=== PATIENT | female | born 1955 | race Caucasian/White ===

== ENCOUNTER 2020-10-14 09:47 | Observation (INO) | payer MEDICARE, SELFPAY ==
[2020-10-14] VITALS (9 sets, daily range): BP systolic 106–165; BP diastolic 33–77; PULSE 72–103; RESP 17–26; TEMP 36.5–37.7; O2SAT 96–100; BMI 21.9
--- NOTE | 2020-10-14 09:52 | CT_ITS ---
WS: [id number] CT HEAD NONCONTRAST HISTORY: fall and hit head TECHNIQUE: Contiguous axial imaging performed through the brain in 2.5 mm imaging. Bone and soft tiss ue windows. Sagittal and coronal reformats reviewed. All CT scans at [facility] use at ast one of these dose optimization techniques: automated exposure control; mA and/or kV adjustment pe r patient size (includes targeted exams where dose is matched to clinical indication); or iterative r econstruction. DLP: 890.23 mGy.cm COMPARISON: None available. No acute intracranial hemorrhage, midline shift or mass effect. Mild atrophy and mild chronic microvascular ischemic disease. There is motion artifact obscuring por tions of the anterior brain. Ventricles: Normal size with no hydrocephalus. Paranasal sinuses: As visualized are clear. Mastoid air cells: Well pneumatized. Extensive soft tissue in the external auditory canals from cerum en. Increased soft tissue adjacent to the RIGHT inner ear ossicles. Calvarium and scalp: No calvarial fracture. There is extensive soft tissue edema and air centered ove r the superior nasal region and the frontal bone. The nasal bones are intact. CT/CT head wo con* [id number] IMPRESSION: 1. No acute intracranial hemorrhage or edema. 2. Extensive soft tissue injury with hematoma and air centered over the superi or nasal region and frontal bone. No skull fracture or nasal bone fracture appr eciated.
--- NOTE | 2020-10-14 10:01 | ECG_ITS ---
[facility] Test Date: 2020-10-14 Pat Name: JESSIE SCHULZ Department: Room: Gender: Female Frame Polisher: : 1955 Requested By: Rakan Scanlon Order Number: [id number] Dusty MD: Rhea Holman M.D. Measurements Intervals [place] Rate: 74 P: 70 WA: 188 QRS: 26 QRSD: 97 T: 46 QT: 381 QTc: 425 Interpretive Statements SINUS RHYTHM No previous ECG available for comparison Electronically Signed On 10-14-2020 18:25:49 FIRE FIGHTER by Rhea Holman M.D. [id number]
--- NOTE | 2020-10-14 10:15 | ED_ITS ---
Documented by User: DEVON Garnica 10/14/20 16:01 HPI - Fall General: Chief Complaint: Fall Stated Complaint: FALL, POSS SEIZURE, LAC TO HEAD Time Seen by Provider: 10/14/20 09:53 History of Present Illness: HPI Narrative: Patient is a 65-year-old female who comes to the ED via EMS after having a fall in bathroom due possible seizure, but fall unwitnessed. Patient does have a past medical history of MS and seizures. Patient is not currently on any anti-seizure meds. She is only had about 3 seizures in entire life. Patient was found down in the bathroom with a laceration to her forehead. While here in the ED patient was able to respond to questions and seemed to be in postictal state. Patient is not sure what caused her to go down in the shower and has no memory of it. No idea on how long patient was down and unconscious. told EMS that during the night he thought his was shaking a little bit while she was sleeping. He thinks she might have a been having some seizure activity during the night. When EMS arrived patient was unconscious and has slowly been coming to since found. Patient up-to-date on tetanus and received it within the last 10 years. Daughter is present at bedside as well. She stated patient's last seizure was during the summer. Associated symptoms-after fall: Reports confusion (Postictal symptoms.); Denies abdominal pain, chest pain, headache(s), hematuria or neck pain Review of Systems Const: Denies: fever(s), chills or fatigue Eyes: Reports: other (Periorbital swelling on left eye.); Denies: change in vision or eye discomfort ENMT: Denies: throat pain, odynophagia, nasal discharge or nasal congestion Card: Denies: chest pain, palpitations, edema, swelling of feet/ankles, dyspnea on exertion or orthopnea Resp: Denies: dyspnea, productive cough or non-productive cough GI: Denies: abdominal pain, nausea, vomiting, diarrhea, constipation or hematochezia : Denies: flank pain, dysuria or hematuria Musc: Denies: neck pain, back pain or extremity swelling Skin/Breast: Reports: new lesions (Laceration to forehead.); Denies: rash Neuro: Reports: confusion (Postictal symptoms.) and seizure-like activity; Denies: headache(s), numbness in extremities or weakness in extremities Physical Exam Const: COMMON NORMALS: patient oriented x3, healthy appearing and alert EXAM LIMITATIONS: altered mental status (Post ictal but is improving and continuing to slowly returned to baseline. ) GENERAL APPEARANCE: cooperative and comfortable HENMT: COMMON NORMALS: normocephalic HEAD & SCALP: normocephalic and laceration right frontal Details of head laceration: linear (Linear laceration on lower central part of forehead. Just above eyebrow line.) and superficial; not actively bleeding, not pulsatile bleeding, foreign body not present and not contaminated Head laceration size: 2 cm; no Thrasher's sign and no raccoon eyes FACE & SINUS: abrasion on the left periorbital NOSE: Other nasal findings present (Patient had abrasion on bridge of nose.) MOUTH: Normal oral and palatal mucosa present THROAT: posterior oropharynx normal and uvula midline Eye: PERIORBITAL: periorbital findings abnormal positive left periorbital swelling and periorbital ecchymosis Neck/C-Spine: COMMON NORMALS: supple GENERAL: Yes normal visual inspection Resp: COMMON NORMALS: normal respiratory effort, No retractions, No use of accessory muscles and clear to auscultation bilaterally AUSCULTATION: clear to auscultation bilaterally Cardio: COMMON NORMALS: regular rate, regular rhythm, S1 normal heart sound present, S2 normal heart sound present, No gallops present (Cardio), No clicks present (Cardio), No murmurs present (Cardio) and Peripheral pulses 2+ throughout RATE: regular rate RHYTHM: regular rhythm HEART SOUNDS: S1 normal heart sound present and S2 normal heart sound present PERIPHERAL PULSES: Peripheral pulses 2+ throughout GI: COMMON NORMALS: Normal to inspection, nondistended, normoactive bowel sounds present, Soft to palpation, non-tender and no masses PALPATION: Yes Soft to palpation : COMMON NORMALS: Yes no CVA tenderness BLADDER/KIDNEY EXAM: Yes no CVA tenderness Back/Pelvis: COMMON NORMALS: no CVA tenderness Extremity: COMMON NORMALS: normal to inspection Neuro: COMMON NORMALS: patient oriented x3 and moves all extremities SENSORIUM/ORIENTATION: Yes alert OTHER: Patient was in postictal state and seems sleepy but was responsive to my questions and answered them appropriately. Mental status was improving as time progressed here in the ED. Skin: GENERAL SKIN EXAM: dry skin Procedures Laceration Laceration 1: Site: face (lower middle forehead in between eyes) Size (cm): 2 Description: linear Depth: simple, single layer Local Anesthetic: lidocaine 1% and with epi Amount of anesthesia used (mL): 10 Pre-repair: irrigated extensively (With normal saline.) Skin layer closed with: nylon Size (cm): 5-0 Number of sutures: 3 Technique: simple, interrupted Course Reevaluation(s): Reevaluation #1: While I was suturing patient's laceration she had a generalized seizure. She was having uncontrolled full body convulsions and was unresponsive. Seizure lasted for approximately 1 minute and she did have bladder incontinence. I ordered some Ativan patient has been administered a dose. Currently she is post ictal Time: 11:10 Reevaluation #2: I went in and reevaluated patient's mental status. She is alert and will respond to a question but is not always an accurate response. She knew her birthday month but not the day. She also did not know where she was and thought she was at home. I went and talked with Dr. Eaton about patient's current mental status and he said he would contact the hospitalist about possible admission. Time: 14:05 Consultations: Consultation #1: I contacted Dr. Bertrand and talked with her about patient case and recent seizure activity and CT head findings. She agreed with the doses of Ativan and Keppra that were given here in the ED. She recommended watching patient for another hour or so to see if there mental status improves and she comes out of postictal state. If not she recommends having hospitalist admit her to watch her. She also recommends that patient gets put on 500 mg of Keppra ER take 2 tabs daily at discharge. Vital Signs: Vital signs: Vital Signs Temperature 98.1 F 10/15/20 18:07 Pulse Rate 53 L 10/15/20 18:07 Respiratory Rate 19 H 10/15/20 18:07 Blood Pressure 107/64 10/15/20 18:07 Pulse Oximetry 97 10/15/20 18:07 MDM - Fall MDM Narrative: Medical decision making narrative: Patient is a 65-year-old female who comes to the ED after having a possible seizure and being found down on the ground unconscious with laceration to forehead. Patient has a history of MS and seizures but currently does not take any antiseizure medication. Last known seizure prior to today was a couple months ago during the summer. Patient's mental status when she first arrived in the ED was improving and she was responding to questions appropriately but was tired and in postictal state. Patient then had a generalized seizure while here in the ED and she was given 1000 mg of Keppra and [address] of head showed no acute findings. I discussed the case with Dr. Bertrand and she recommended watching her for another hour to see if mental status improves. If it does not improve she recommends patient being admitted in the hospital. After reassessing patient's mental status she still appeared pretty confused and I talked with Dr. Eaton and he is going to contact hospitalist for admission. Lab Data: Attestation: I reviewed the patient's lab results. Labs: Lab Results 10/14/20 10/14/20 10/14/20 Range/Units 11:43 12:04 12:04 WBC Cancelled Corrected WBC Cancelled RBC Cancelled Hgb Cancelled Hct Cancelled MCV Cancelled MCH Cancelled MCHC Cancelled RDW Cancelled Plt Count Cancelled MPV Cancelled Gran % Cancelled Neut % (Auto) Cancelled Lymph % (Auto) Cancelled Gillespie % (Auto) Cancelled Eos % (Auto) Cancelled Baso % (Auto) Cancelled Neut # (Auto) Cancelled Lymph # (Auto) Cancelled Gillespie # (Auto) Cancelled Eos # (Auto) Cancelled Baso # (Auto) Cancelled Absolute Gran (aut o) Cancelled Nucleated RBC % (a uto) Cancelled Nucleated RBCs # Cancelled PT 12.70 (12.1-14.9) SECO NDS INR 0.93 (0.8-1.2) APTT 20.3 L (23.9-36.7) SECO NDS Sodium 142 (136-145) mmol/L Potassium 3.8 (3.5-5.1) mmol/L Chloride 106 (98-107) mmol/L Carbon Dioxide 26 (22-29) mmol/L Anion Gap 13.8 (5-19) BUN 10 (8-23) mg/dL Creatinine 0.5 (0.5-0.9) mg/dL GFR Calculation 124.6 (90-130) mL/min Glucose 109 (65-115) mg/dL Random Glucose Cancelled Calculated Osmolal ity 294 (285-295) mOsm/k g Lactic Acid (0.5-2.2) mmol/L Calcium 8.9 (8.5-10.5) mg/dL Total Bilirubin 0.4 (0.15-1.2) mg/dL AST 19 (0-32) U/L ALT 13 (0-33) U/L Alkaline Phosphata se 60 (35-105) IU/L Creatine Kinase 150 (26-192) U/L Total Protein 6.9 (6.6-8.7) g/dL Albumin 4.2 (3.5-5.2) g/dL Globulin 2.7 (1.3-4.6) g/dL 10/14/20 10/14/20 10/14/20 Range/Units 12:04 12:04 13:28 WBC 10.4 H Corrected WBC RBC 3.98 L Hgb 11.7 Hct 36.7 L MCV 92.2 MCH 29.4 MCHC 31.9 RDW 13.2 Plt Count 250 MPV 11.0 H Gran % Neut % (Auto) 85.1 Lymph % (Auto) 9.6 Gillespie % (Auto) 4.5 Eos % (Auto) 0.1 Baso % (Auto) 0.3 Neut # (Auto) 8.87 H Lymph # (Auto) 1.0 Gillespie # (Auto) 0.5 Eos # (Auto) 0.0 Baso # (Auto) 0.0 Absolute Gran (aut o) Nucleated RBC % (a uto) 0 Nucleated RBCs # 0.0 PT (12.1-14.9) SECO NDS INR (0.8-1.2) APTT (23.9-36.7) SECO NDS Sodium Cancelled (136-145) mmol/L Potassium Cancelled (3.5-5.1) mmol/L Chloride Cancelled (98-107) mmol/L Carbon Dioxide Cancelled (22-29) mmol/L Anion Gap Cancelled (5-19) BUN Cancelled (8-23) mg/dL Creatinine Cancelled (0.5-0.9) mg/dL GFR Calculation Cancelled (90-130) mL/min Glucose Cancelled (65-115) mg/dL Random Glucose Calculated Osmolal ity Cancelled (285-295) mOsm/k g Lactic Acid 1.1 (0.5-2.2) mmol/L Calcium Cancelled (8.5-10.5) mg/dL Total Bilirubin Cancelled (0.15-1.2) mg/dL AST Cancelled (0-32) U/L ALT Cancelled (0-33) U/L Alkaline Phosphata se Cancelled (35-105) IU/L Creatine Kinase Cancelled (26-192) U/L Total Protein Cancelled (6.6-8.7) g/dL Albumin Cancelled (3.5-5.2) g/dL Globulin Cancelled (1.3-4.6) g/dL 10/14/20 Range/Units 13:28 WBC Corrected WBC RBC Hgb Hct MCV MCH MCHC RDW Plt Count MPV Gran % Neut % (Auto) Lymph % (Auto) Gillespie % (Auto) Eos % (Auto) Baso % (Auto) Neut # (Auto) Lymph # (Auto) Gillespie # (Auto) Eos # (Auto) Baso # (Auto) Absolute Gran (aut o) Nucleated RBC % (a uto) Nucleated RBCs # PT (12.1-14.9) SECO NDS INR (0.8-1.2) APTT (23.9-36.7) SECO NDS Sodium Cancelled (136-145) mmol/L Potassium Cancelled (3.5-5.1) mmol/L Chloride Cancelled (98-107) mmol/L Carbon Dioxide Cancelled (22-29) mmol/L Anion Gap Cancelled (5-19) BUN Cancelled (8-23) mg/dL Creatinine Cancelled (0.5-0.9) mg/dL GFR Calculation Cancelled (90-130) mL/min Glucose Cancelled (65-115) mg/dL Random Glucose Calculated Osmolal ity Cancelled (285-295) mOsm/k g Lactic Acid (0.5-2.2) mmol/L Calcium Cancelled (8.5-10.5) mg/dL Total Bilirubin Cancelled (0.15-1.2) mg/dL AST Cancelled (0-32) U/L ALT Cancelled (0-33) U/L Alkaline Phosphata se Cancelled (35-105) IU/L Creatine Kinase Cancelled (26-192) U/L Total Protein Cancelled (6.6-8.7) g/dL Albumin Cancelled (3.5-5.2) g/dL Globulin Cancelled (1.3-4.6) g/dL Imaging Data^: CT Head: Attestation: I personally reviewed and interpreted this imaging study as follows: Radiologist's impression: [address] [place] [address] CT Scan Report Signed Patient: JESSIE CSHULZ Unit #: [id number] : 1955 Age/Sex: 65 / F ADM Date: 10/14/20 Loc: ER Room/Bed: Attending Dr: Ordering Provider/Ordering MD: Rakan Scanlon Date of Service: 10/14/20 Procedure(s): CT head wo con* [id number] Accession Number(s): [id number] Report Number: [id number] WS: [id number] CT HEAD NONCONTRAST HISTORY: fall and hit head TECHNIQUE: Contiguous axial imaging performed through the brain in 2.5 mm imaging. Bone and soft tissue windows. Sagittal and coronal reformats reviewed. All CT scans at [facility] use at least one of these dose optimization techniques: automated exposure control; mA and/or kV adjustment per patient size (includes targeted exams where dose is matched to clinical indication); or iterative reconstruction. DLP: 890.23 mGy.cm COMPARISON: None available. No acute intracranial hemorrhage, midline shift or mass effect. Mild atrophy and mild chronic microvascular ischemic disease. There is motion artifact obscuring portions of the anterior brain. Ventricles: Normal size with no hydrocephalus. Paranasal sinuses: As visualized are clear. Mastoid air cells: Well pneumatized. Extensive soft tissue in the external auditory canals from cerumen. Increased soft tissue adjacent to the RIGHT inner ear ossicles. Calvarium and scalp: No calvarial fracture. There is extensive soft tissue edema and air centered over the superior nasal region and the frontal bone. The nasal bones are intact. CT/CT head wo con* [id number] IMPRESSION: 1. No acute intracranial hemorrhage or edema. 2. Extensive soft tissue injury with hematoma and air centered over the superior nasal region and frontal bone. No skull fracture or nasal bone fracture appreciated. Dictated By: Danyelle Mcclendon DO Signed By: Danyelle Mcclendon DO Signed Date/Time: 10/14/20 1032 DD/ 1028 EKG Data^: EKG 1: Attestation: I personally reviewed and interpreted this EKG as follows: EKG interpretation date: 10/14/20 Interpretation: Normal sinus rhythm, 74 bpm, no ST segment elevation or depression seen. Discharge Plan Discharge Patient Disposition: Admitted As Inpatient Admit Provider: Bradley Clay Clinical Impression: Seizure, Multiple sclerosis Condition: Stable Discharge Diet: Usual diet Discharge Activity: Increase activity as tolerated Coding Level of Care Code ED Theater Education Teacher for Chg Fwd Exam Comprehensive Documented by User: Maryanne E[place] [facility] [place]15[place] 23:44 HPI - Fall General: Chief Complaint: Fall Stated Complaint: FALL, POSS SEIZURE, LAC TO HEAD Time Seen by Provider: 10/14/20 09:53 Course Vital Signs: Vital signs: Vital Signs Temperature 98.1 F 10/15/20 18:07 Pulse Rate 53 L 10/15/20 18:07 Respiratory Rate 19 H 10/15/20 18:07 Blood Pressure 107/64 10/15/20 18:07 Pulse Oximetry 97 10/15/20 18:07 MDM - Fall MDM Narrative: Medical decision making narrative: See the midlevel provider as note for history and physical. I evaluated this patient. This 65-year-old female patient with a prior history of seizures and who is not on any antiepileptics has had several episodes of seizures today, at least 3. The last 1 of which was during suturing here in the emergency department. The patient has been postictal because of the recurrent seizures she was given a loading dose of intravenous Keppra and on the advice of the neurologist she is admitted for further evaluation and management. Had extensive conversations with the patient's daughter explaining the clinical findings and the reason why she has been admitted and she voiced understanding and is in agreement with the plan. She was also going to inform her father was worried about the patient. Lab Data: Labs: Lab Results 10/14/20 10/14/20 10/14/20 Range/Units 11:43 12:04 12:04 WBC Cancelled Corrected WBC Cancelled RBC Cancelled Hgb Cancelled Hct Cancelled MCV Cancelled MCH Cancelled MCHC Cancelled RDW Cancelled Plt Count Cancelled MPV Cancelled Gran % Cancelled Neut % (Auto) Cancelled Lymph % (Auto) Cancelled Gillespie % (Auto) Cancelled Eos % (Auto) Cancelled Baso % (Auto) Cancelled Neut # (Auto) Cancelled Lymph # (Auto) Cancelled Gillespie # (Auto) Cancelled Eos # (Auto) Cancelled Baso # (Auto) Cancelled Absolute Gran (aut o) Cancelled Nucleated RBC % (a uto) Cancelled Nucleated RBCs # Cancelled PT 12.70 (12.1-14.9) SECO NDS INR 0.93 (0.8-1.2) APTT 20.3 L (23.9-36.7) SECO NDS Sodium 142 (136-145) mmol/L Potassium 3.8 (3.5-5.1) mmol/L Chloride 106 (98-107) mmol/L Carbon Dioxide 26 (22-29) mmol/L Anion Gap 13.8 (5-19) BUN 10 (8-23) mg/dL Creatinine 0.5 (0.5-0.9) mg/dL GFR Calculation 124.6 (90-130) mL/min Glucose 109 (65-115) mg/dL Random Glucose Cancelled Calculated Osmolal ity 294 (285-295) mOsm/k g Lactic Acid (0.5-2.2) mmol/L Calcium 8.9 (8.5-10.5) mg/dL Total Bilirubin 0.4 (0.15-1.2) mg/dL AST 19 (0-32) U/L ALT 13 (0-33) U/L Alkaline Phosphata se 60 (35-105) IU/L Creatine Kinase 150 (26-192) U/L Total Protein 6.9 (6.6-8.7) g/dL Albumin 4.2 (3.5-5.2) g/dL Globulin 2.7 (1.3-4.6) g/dL 10/14/20 10/14/20 10/14/20 Range/Units 12:04 12:04 13:28 WBC 10.4 H Corrected WBC RBC 3.98 L Hgb 11.7 Hct 36.7 L MCV 92.2 MCH 29.4 MCHC 31.9 RDW 13.2 Plt Count 250 MPV 11.0 H Gran % Neut % (Auto) 85.1 Lymph % (Auto) 9.6 Gillespie % (Auto) 4.5 Eos % (Auto) 0.1 Baso % (Auto) 0.3 Neut # (Auto) 8.87 H Lymph # (Auto) 1.0 Gillespie # (Auto) 0.5 Eos # (Auto) 0.0 Baso # (Auto) 0.0 Absolute Gran (aut o) Nucleated RBC % (a uto) 0 Nucleated RBCs # 0.0 PT (12.1-14.9) SECO NDS INR (0.8-1.2) APTT (23.9-36.7) SECO NDS Sodium Cancelled (136-145) mmol/L Potassium Cancelled (3.5-5.1) mmol/L Chloride Cancelled (98-107) mmol/L Carbon Dioxide Cancelled (22-29) mmol/L Anion Gap Cancelled (5-19) BUN Cancelled (8-23) mg/dL Creatinine Cancelled (0.5-0.9) mg/dL GFR Calculation Cancelled (90-130) mL/min Glucose Cancelled (65-115) mg/dL Random Glucose Calculated Osmolal ity Cancelled (285-295) mOsm/k g Lactic Acid 1.1 (0.5-2.2) mmol/L Calcium Cancelled (8.5-10.5) mg/dL Total Bilirubin Cancelled (0.15-1.2) mg/dL AST Cancelled (0-32) U/L ALT Cancelled (0-33) U/L Alkaline Phosphata se Cancelled (35-105) IU/L Creatine Kinase Cancelled (26-192) U/L Total Protein Cancelled (6.6-8.7) g/dL Albumin Cancelled (3.5-5.2) g/dL Globulin Cancelled (1.3-4.6) g/dL 10/14/20 Range/Units 13:28 WBC Corrected WBC RBC Hgb Hct MCV MCH MCHC RDW Plt Count MPV Gran % Neut % (Auto) Lymph % (Auto) Gillespie % (Auto) Eos % (Auto) Baso % (Auto) Neut # (Auto) Lymph # (Auto) Gillespie # (Auto) Eos # (Auto) Baso # (Auto) Absolute Gran (aut o) Nucleated RBC % (a uto) Nucleated RBCs # PT (12.1-14.9) SECO NDS INR (0.8-1.2) APTT (23.9-36.7) SECO NDS Sodium Cancelled (136-145) mmol/L Potassium Cancelled (3.5-5.1) mmol/L Chloride Cancelled (98-107) mmol/L Carbon Dioxide Cancelled (22-29) mmol/L Anion Gap Cancelled (5-19) BUN Cancelled (8-23) mg/dL Creatinine Cancelled (0.5-0.9) mg/dL GFR Calculation Cancelled (90-130) mL/min Glucose Cancelled (65-115) mg/dL Random Glucose Calculated Osmolal ity Cancelled (285-295) mOsm/k g Lactic Acid (0.5-2.2) mmol/L Calcium Cancelled (8.5-10.5) mg/dL Total Bilirubin Cancelled (0.15-1.2) mg/dL AST Cancelled (0-32) U/L ALT Cancelled (0-33) U/L Alkaline Phosphata se Cancelled (35-105) IU/L Creatine Kinase Cancelled (26-192) U/L Total Protein Cancelled (6.6-8.7) g/dL Albumin Cancelled (3.5-5.2) g/dL Globulin Cancelled (1.3-4.6) g/dL Discharge Plan Discharge Patient Disposition: Admitted As Inpatient Admit Provider: Bradley Clay Clinical Impression: Seizure, Multiple sclerosis Condition: Stable Discharge Diet: Usual diet Discharge Activity: Increase activity as tolerated Coding Level of Care Code ED Theater Education Teacher for Chg Fwd Exam Comprehensive
[2020-10-14] MEDS: LORazepam 2 mg/mL INJ 1 mL IVP (11:05)
[2020-10-14 12:32] LABS: Lactic Sepsis W/Reflex 1.1 mmol/L (0.5-2.2)
[2020-10-14 12:34] LABS: INR 0.93 (0.8-1.2)
[2020-10-14 12:58] LABS: Partial Thromboplastin Time 20.3 SECONDS (23.9-36.7)
[2020-10-14 13:38] LABS: Basophils % 0.3 %; Eosinophils % 0.1 %; Hematocrit 36.7 % (37.0-47.0); Hemoglobin 11.7 g/dL (11.5-15.3); Lymphocytes % 9.6 %; Mean Corpuscular HGB Conc 31.9 g/dL (30.0-36.0); Mean Corpuscular Hemoglobin 29.4 pg (28.0-34.0); Mean Corpuscular Volume 92.2 fL (81-99); Monocytes # 0.5 10^3/uL (0.2-0.9); Monocytes % 4.5 %; Neutrophils # 8.87 10^3/uL (1.8-7.7); Neutrophils % 85.1 %; Nucleated Red Blood Cells % 0 %; Platelet Count 250 10^3/cmm (130-400); Red Blood Count 3.98 10^6/uL (4.1-5.3); Red Cell Distribution Width 13.2 % (12.1-15.1); White Blood Count 10.4 10^3/uL (4.0-10.0)
[2020-10-14 14:37] LABS: Alanine Aminotransferase 13 U/L (0-33); Albumin Level 4.2 g/dL (3.5-5.2); Alkaline Phosphatase 60 IU/L (35-105); Anion Gap 13.8 (5-19); Aspartate Amino Transferase 19 U/L (0-32); Blood Urea Nitrogen 10 mg/dL (8-23); Calcium 8.9 mg/dL (8.5-10.5); Carbon Dioxide 26 mmol/L (22-29); Chloride 106 mmol/L (98-107); Creatine Phosphokinase 150 U/L (26-192); Globulin 2.7 g/dL (1.3-4.6); Glomerular Filtration Rate 124.6 mL/min (90-130); Glucose 109 mg/dL (65-115); Osmolality Calculated 294 mOsm/kg (285-295); Potassium 3.8 mmol/L (3.5-5.1); Sodium 142 mmol/L (136-145); Total Bilirubin 0.4 mg/dL (0.15-1.2); Total Protein 6.9 g/dL (6.6-8.7)
--- NOTE | 2020-10-14 15:13 | CTR_ITS ---
PROCEDURE INFORMATION: Exam: CT Maxillofacial Without Contrast Exam date and time: 10/14/2020 3:14 PM Age: 65 years old Clinical indication: Injury or trauma; Fall; Blunt trauma (contusions or hematomas); Cheek bone and nose; Left; Additional info: Fall, facial injuries TECHNIQUE: Imaging protocol: Computed tomography images of the face without contrast. Radiation optimization: All CT scans at this facility use at least one of these dose optimization techniques: automated exposure control; mA and/or kV adjustment per patient size (includes targeted exams where dose is matched to clinical indication); or iterative reconstruction. COMPARISON: No relevant prior studies available. RADIATION DOSE METRICS: Total DLP (mGy-cm): 754.45 FINDINGS: Orbital cavity: The orbits are intact. Bones/joints: The nasal bones appear intact. The zygomatic arches are intact. The mandible is intact. No fracture of the pterygoid plates. Paranasal sinuses: No air-fluid levels are seen in the paranasal sinuses. Auditory system: Retained cerumen in the bilateral external auditory canals. Soft tissues: Soft tissue swelling and air seen in the soft tissues of the nose and frontal scalp in the midline. No radiopaque foreign body demonstrated in the soft tissues. No soft tissue hematoma appreciated. CT/CT facial bones wo con* [id number] IMPRESSION: 1. No acute fracture demonstrated. 2. Soft tissue swelling and air seen in the nose and frontal scalp in the midline. This is consistent with soft tissue laceration. No foreign body. Radiation Dose CTDIVOL = (mGy): DLP = 754.45 (mGy-cm)
--- NOTE | 2020-10-14 15:54 | PM.HP ---
Providers/Chief Complaint Admitting Physician: Bradley Clay MD Chief Complaint: FALL, POSS SEIZURE, LAC TO HEAD History of Present Illness 65-year-old female with PMH of seizure disorder ,HTN, was brought in by the EMS after she was found down in her bathroom with a laceration to her forehead. Patient is not sure what caused her to go down in the shower and has no memory of it. No idea on how long patient was down and unconscious.While in the ER there was witnessed GTCS aborted with Keppra 1 gm and ativan. At the time of exam she was drowsy history taking has been difficult.Currently she is complaining of pain around her lt eye and lt forehead. Rohith has not taken any seizure medication crista stopped taking seizure medications in the last 3 months.She do not recall what seizure medications she is on. Complete ROS could not be obtained, as the patient is drowsy right now. Imaging studies in the ER: CT head without contrast: No acute intracranial hemorrhage or edema. Extensive soft tissue injury with hematoma and air centered over the superior nasal region and frontal bone. No skull fracture or nasal bone fracture appreciated. CT facial bones wo con: No acute fracture demonstrated. Soft tissue swelling and air seen in the nose and frontal scalp in the midline. EKG:SINUS RHYTHM. Review of Systems Const: Denies: fever(s) Card: Denies: palpitations Resp: Denies: dyspnea GI: Denies: abdominal pain : Denies: flank pain Musc: Denies: back pain, extremity pain or extremity swelling Medications/Allergies Home Medications Medication Instructions Recorded Confirmed Last Taken Type aspirin 81 mg PO DAILY 10/14/20 10/14/20 10/13/20 History ginseng 100 mg PO DAILY 10/14/20 10/14/20 10/13/20 History glatiramer [Copaxone] 20 mg SUBCUT DAILY 10/14/20 10/14/20 10/13/20 History metoprolol tartrate 25 mg PO DAILY 10/14/20 10/14/20 10/13/20 History tolterodine 4 mg PO DAILY 10/14/20 10/14/20 10/13/20 History Allergies Allergy/AdvReac Type Severity Reaction Status Date / Time No Known Allergies Allergy Verified 10/14/20 10:01 Vitals/I&O/Wt Last Vital Signs Temp 97.7 F 10/14/20 10:02 Pulse 89 10/14/20 14:48 Resp 18 10/14/20 14:48 BP 140/65 10/14/20 14:48 Pulse Ox 97 10/14/20 14:48 Weight last 48 hrs Weight 63.503 kg Physical Exam Narrative: EXAM NARRATIVE: Patient is currently Drowsy HENMT: HEAD & SCALP: normocephalic EXTERNAL EAR: Yes external ears normal Eye: OTHER: laceration right frontal: linear (Linear laceration on lower central part of forehead. Just above eyebrow line.) and superficial; not actively bleeding, not pulsatile bleeding, foreign body not present and not contaminated Head laceration size: 2 cm; no Thrasher's sign and no raccoon eyes FACE & SINUS: abrasion on the left periorbital NOSE: Other nasal findings present (Patient had abrasion on bridge of nose.) MOUTH: Normal oral and palatal mucosa present THROAT: posterior oropharynx normal and uvula midline Eye: PERIORBITAL: periorbital findings abnormal positive left periorbital swelling and periorbital ecchymosis Neck: supple Chest: COMMONS NORMALS: normal inspection of the chest and normal palpation of entire chest wall CHEST: Yes Symmetrical chest wall rise Resp: COMMON NORMALS: normal respiratory effort, No retractions and clear to auscultation bilaterally EFFORT & INSPECTION: Yes symmetric chest movement AUSCULTATION: clear to auscultation bilaterally Cardio: COMMON NORMALS: regular rate, regular rhythm, S1 normal heart sound present, S2 normal heart sound present, No gallops present (Cardio), No murmurs present (Cardio), No rub (Cardio) and Peripheral pulses 2+ throughout RATE: regular rate RHYTHM: regular rhythm HEART SOUNDS: S1 normal heart sound present and S2 normal heart sound present PERIPHERAL PULSES: Peripheral pulses 2+ throughout GI: COMMON NORMALS: Normal to inspection, nondistended, normoactive bowel sounds present, Soft to palpation, non-tender, No hepatosplenomegaly present and no masses AUSCULTATION: Yes normoactive bowel sounds PALPATION: Yes Soft to palpation and Yes No hepatosplenomegaly present RECTAL EXAM: deferred Extremity: COMMON NORMALS: no clubbing, cyanosis or edema and no pedal edema Data : 10/14/20 13:28 10/14/20 11:43 A&P Assessment and plan (1) Seizure: Patient has PMH of Seizure disorder, she has been on Anti Seizure Medications in the past.Stopped taking seizure medication Loaded with Keppra 1 gm in the ER. Neurology was consulted in the ER and Per neurology.They want to observe the patient overnight for any oter breakthrough seizure as well as any change in mentation. Continue Keppra 500 mg q12 h daily for now. Ativan PRN Neurology follow as outpatient. Status: Acute (2) Multiple sclerosis: She is on GA ( 20 mg sc daily at home ) Status: Acute (3) HTN (hypertension): B/P Well controlled. Monitor Vitals for now. Will resume M.Tart 25 mg po daily Status: Acute Additional A&P Information DVT PPX: Lovenox 40 mg sc daily Code status :Full code Attestations Medical Necessity Statement*: Patient needs to be in hospital for the management of Seizure. Coding Level of Care Code Acute Frame Sample And Pattern Supervisor for Oliva Wick Diagnoses Seizure R56.9 Multiple sclerosis G35 HTN (hypertension) I10
[2020-10-14] MEDS: enoxaparin 40 mg/0.4 mL Syringe SUBCUT (17:42)
--- NOTE | 2020-10-14 20:05 | XR_ITS ---
WS: [id number] Exam: XR shoulder RT 1V [id number] Date/Time of Exam: 10/14/2020 8:22 PM Reason For Exam: fall Single AP view of the right shoulder submitted for evaluation. No obvious fracture or dislocation noted. Soft tissues are unremarkable. Several old right rib fractu res are noted. XR/XR shoulder RT 1V [id number] IMPRESSION: 1. No obvious fracture or dislocation from the single AP image presented. A pos terior shoulder dislocation can't be completely excluded on this single AP imag e.
--- NOTE | 2020-10-14 20:05 | XR_ITS ---
WS: [id number] Exam: XR chest 1V portable [id number] Date/Time of Exam: 10/14/2020 8:22 PM Reason For Exam: fall No priors. The lungs are fully expanded and clear. Heart size is normal. The mediastinum is not widened. No pleu ral effusions. Fracture deformities involve the posterior right second, third and fourth ribs. There is also fracture deformity of the posterior left third rib. XR/XR chest 1V portable [id number] IMPRESSION: 1. Fracture deformities of the right second through the fourth ribs and the lef t third rib. Fracture age is indeterminate. 2. No pulmonary infiltrate or pneumothorax.
--- NOTE | 2020-10-14 20:10 | PC.NURSE ---
Patient found on floor by staff. Patient is alert to self only. Patient is responsive and speech is clear. Small abrasion to right shoulder posterior. REdness noted to right lateral chest. VS 101/56, HR 81, 96% on RA, T Max 99, R 20. Patient assisted back to bed 3 assist. Right eye 4 mm equal and reactive to light. Left eye is matted shut and swollen with exudate. Unable to assess the eye due to dryed exudate. Spoke with daughter. Daughter notified and states patient in normally alert and oriented, her gait is unsteady and patient is unable to stand up straight. This is her baseline. Physician notified
[2020-10-15 00:55] VITALS: BP 108/57; PULSE 78; RESP 17; TEMP 37.7; O2SAT 96
[2020-10-15 04:58] LABS: Basophils % 0.4 %; Eosinophils % 0.1 %; Hematocrit 36.2 % (37.0-47.0); Hemoglobin 11.5 g/dL (11.5-15.3); Lymphocytes % 26.5 %; Mean Corpuscular HGB Conc 31.8 g/dL (30.0-36.0); Mean Corpuscular Hemoglobin 29.1 pg (28.0-34.0); Mean Corpuscular Volume 91.6 fL (81-99); Monocytes # 0.6 10^3/uL (0.2-0.9); Monocytes % 8.7 %; Neutrophils # 4.74 10^3/uL (1.8-7.7); Neutrophils % 64.2 %; Nucleated Red Blood Cells % 0 %; Platelet Count 234 10^3/cmm (130-400); Red Blood Count 3.95 10^6/uL (4.1-5.3); Red Cell Distribution Width 13.4 % (12.1-15.1); White Blood Count 7.4 10^3/uL (4.0-10.0)
[2020-10-15 05:12] VITALS: BP 126/68; PULSE 70; RESP 17; TEMP 36.9; O2SAT 97
[2020-10-15 05:43] LABS: NT Pro B Type Natriuretic Pept 716 pg/mL (0-125); Procalcitonin 0.04 ng/mL (0-0.5)
[2020-10-15 05:44] LABS: Alanine Aminotransferase 12 U/L (0-33); Albumin Level 3.8 g/dL (3.5-5.2); Alkaline Phosphatase 54 IU/L (35-105); Anion Gap 13.5 (5-19); Aspartate Amino Transferase 20 U/L (0-32); Blood Urea Nitrogen 12 mg/dL (8-23); Calcium 8.8 mg/dL (8.5-10.5); Carbon Dioxide 24 mmol/L (22-29); Chloride 107 mmol/L (98-107); Globulin 2.8 g/dL (1.3-4.6); Glomerular Filtration Rate 84.5 mL/min (90-130); Glucose 90 mg/dL (65-115); Magnesium 2.2 mg/dL (1.7-2.3); Osmolality Calculated 291 mOsm/kg (285-295); Phosphorus 3.2 mg/dL (2.5-4.5); Potassium 3.5 mmol/L (3.5-5.1); Sodium 141 mmol/L (136-145); Thyroid Stimulating Hormone 1.74 uIU/mL (0.27-4.20); Total Bilirubin 0.7 mg/dL (0.15-1.2); Total Protein 6.6 g/dL (6.6-8.7)
[2020-10-15 07:06] LABS: Add Urine Microscopic? YES; Bilirubin Urine Neg (Negative); Blood Urine 2+ (Negative); Glucose Urine UA Norm (Normal); Ketones Urine 1+ (Negative); Leukocyte Esterase Urine 2+ (Negative); Nitrate Urine Positive (Negative); Protein Urine Neg (Negative); Urine Appearance Cloudy (CLEAR); Urine Color Yellow (Yellow); Urobilinogen Urine Norm (Negative); pH Urine 5 (5-7)
[2020-10-15 07:08] LABS: Add Urine Culture? Yes; Bacteria Urine 2+ /hpf; RBC Urine 0-4 /hpf (0-2); Squamous Epithelial Cell Urine 0-4 /hpf (0-5); WBC Urine TOO NUMEROUS TO CNT /hpf (0-5)
[2020-10-15 07:37] VITALS: BP 114/65; PULSE 67; RESP 16; TEMP 36.9; O2SAT 99
--- NOTE | 2020-10-15 08:39 | PC.NURSE ---
Dr. Clay gives verbal permission for patient daughter to come sit with patient in room.
[2020-10-15] MEDS: aspirin 81 mg EC Tablet PO (09:29)
[2020-10-15] MEDS: metoprolol tartrate 25 mg Tablet PO (09:29)
--- NOTE | 2020-10-15 09:35 | PC.CHAP ---
Pastoral Care Encounter/Spiritual Assessment Type of Contact [] Declined hair mixer visit [] Patient/Family/Request visit [] Outpatient visit [] Follow-up visit [] Physician referral [] Code/Alert [x] Routine visit [] Staff referral [] Actively dying [] Patient sleeping [] Family support [] [] Out of room [] Palliative care [] [] Receiving care in room [] Pre-surgical visit [] Trauma [] Long length of stay [] ICU visit [] Other: Relational/Emotional Strength [] Patient feels connected with others/family/visitors/staff [] Distress [] Loneliness/isolation [] Abandonment Spirituality of Patient [] Person of Abbey [] Attends [employer] of their [employer] [] Believes in Prayer [] Reads Bible or Protestant materials [] There are Spiritual issues to be addressed Medical Billing Representative Interventions [x] Prayer [x] Active listening [x] Non-anxious presence [x] Spiritual/emotional support [] Crisis/trauma care [] Spiritual counseling [] Bereavement support [] Provided bereavement packet [] Provided Bible/devotional materials [] Provided toy/stuffed animal, coloring book to patient or family member [] Provided Communion [] Anointing/[place] [] Salvation [x] Completed spiritual assessment [] Other: Impact on Illness or Injury [] Angry [] Fearful [] Anxious [] Often cries [] Exhaustion [] Unable to work [] Unable to attend gnosticist [] Unable to walk/stand [] Unable to read [] Unable to drive [] Unable to eat/drink [] Unable to sleep [] Unable to be with family [] Patient intubated [] Other: Summary patient resting.. very still... Time spent with patient 5 min
[2020-10-15 11:34] VITALS: BP 107/64; PULSE 53; RESP 19; TEMP 36.7; O2SAT 97
[2020-10-15 16:00] VITALS: BP 107/64; PULSE 53; RESP 19; TEMP 36.7; O2SAT 97
--- NOTE | 2020-10-15 17:18 | PM.DCS ---
Discharge Providers Date of Admission: 10/14/20 15:20 Date of Discharge: October 15, 2020 Attending Provider at Admission: Bradley Clay MD Attending Provider at Discharge: Bradley Clay MD Diagnoses at Discharge Discharge Diagnosis (1) Seizure: Status: Chronic (2) Multiple sclerosis: Status: Chronic (3) HTN (hypertension): Status: Chronic Reason for Visit Reason for Visit: FALL, POSS SEIZURE, LAC TO HEAD Hospital Course Hospital Course 65-year-old female with PMH of seizure disorder ,HTN, was brought in by the EMS after she was found down in her bathroom with a laceration to her forehead. Patient is not sure what caused her to go down in the shower and has no memory of it. No idea on how long patient was down and unconscious.While in the ER there was witnessed GTCS aborted with Keppra 1 gm and ativan.She was admitted for overnight observation. During the hospital stay no fresh seizure episode.She has never been on any anti seizure medications,inspite of having seizures in the past. She is at AO*3, tolerating diet well, has remained afebrile. Mild Leukocytosis present on admission has resolved, no concern for infection.Hence no Abxs started. Currently being discharged on Keppra 500 mg q12 h daily, and she has a neurologist which she see as outpatient and is due for an EEG. Imaging studies: CT head without contrast: No acute intracranial hemorrhage or edema. Extensive soft tissue injury with hematoma and air centered over the superior nasal region and frontal bone. No skull fracture or nasal bone fracture appreciated. CT facial bones wo con: No acute fracture demonstrated. Soft tissue swelling and air seen in the nose and frontal scalp in the midline. XR shoulder RT : No obvious fracture or dislocation noted. Soft tissues are unremarkable. Several old right rib fractures are noted. Physical Exam Const: COMMON NORMALS: patient oriented x3 HENMT: COMMON NORMALS: normocephalic HEAD & SCALP: normocephalic OTHER: laceration right frontal: linear (Linear laceration on lower central part of forehead. Just above eyebrow line.) and superficial; not actively bleeding, not pulsatile bleeding, foreign body not present and not contaminated Head laceration size: 2 cm; no Thrasher's sign and no raccoon eyes FACE & SINUS: abrasion on the left periorbital NOSE: Other nasal findings present (Patient had abrasion on bridge of nose.) MOUTH: Normal oral and palatal mucosa present THROAT: posterior oropharynx normal and uvula midline Eye: PERIORBITAL: periorbital findings abnormal positive left periorbital swelling and periorbital ecchymosis Neck: supple Eye: COMMON NORMALS: no scleral icterus GENERAL EYE: appearance normal, both eyes and all related structures Chest: COMMONS NORMALS: normal inspection of the chest and normal palpation of entire chest wall CHEST: Yes Symmetrical chest wall rise Resp: COMMON NORMALS: normal respiratory effort, No retractions, No use of accessory muscles and clear to auscultation bilaterally EFFORT & INSPECTION: Yes symmetric chest movement AUSCULTATION: clear to auscultation bilaterally Cardio: COMMON NORMALS: regular rate, regular rhythm, S1 normal heart sound present, S2 normal heart sound present, No gallops present (Cardio), No murmurs present (Cardio), No rub (Cardio) and Peripheral pulses 2+ throughout RATE: regular rate RHYTHM: regular rhythm HEART SOUNDS: S1 normal heart sound present and S2 normal heart sound present PERIPHERAL PULSES: Peripheral pulses 2+ throughout GI: COMMON NORMALS: Normal to inspection, nondistended, normoactive bowel sounds present, Soft to palpation, non-tender, No hepatosplenomegaly present and no masses AUSCULTATION: Yes normoactive bowel sounds PALPATION: Yes Soft to palpation and Yes No hepatosplenomegaly present RECTAL EXAM: deferred Extremity: COMMON NORMALS: no clubbing, cyanosis or edema and no pedal edema Neuro: COMMON NORMALS: patient oriented x3 Discharge Data Data Completed and Pending: Completed Studies During Hospitalization Category Date Time Status CT facial bones w o con* [id number] Urgen t Cat Scan 10/14/20 15:[address] head wo con* [id number] Urgent Cat Scan 10/14/20 09:52 Completed XR chest 1V ana ble [id number] Stat Exams 10/14/20 20:05 Completed XR shoulder RT 1V [id number] Stat Exams 10/14/20 20:05 Completed Pending at discharge Category Date Time Status Complete Blood Co unt w/Auto AM LABS Lab 10/16/20 04:00 Ordered Complete Blood Co unt w/Auto AM LABS Lab 10/17/20 04:00 Ordered Comprehensive Met abolic Panel AM LA BS Lab 10/16/20 04:00 Ordered Comprehensive Met abolic Panel AM LA BS Lab 10/17/20 04:00 Ordered Magnesium AM LABS Lab 10/16/20 04:00 Ordered Magnesium AM LABS Lab 10/17/20 04:00 Ordered Phosphorus AM LAB S Lab 10/16/20 04:00 Ordered Phosphorus AM LAB S Lab 10/17/20 04:00 Ordered Urine Culture [place] Lab 10/15/20 06:00 Received Labs from last 24 hours 10/15/20 10/15/20 10/15/20 06:00 03:50 03:50 WBC RBC Hgb Hct MCV MCH MCHC RDW Plt Count MPV Neut % (Auto) Lymph % (Auto) [place]ster % (Auto) Eos % (Auto) Baso % (Auto) Neut # (Auto) Lymph # (Auto) [place] # (Auto) Eos # (Auto) Baso # (Auto) Nucleated RBC % (a uto) Nucleated RBCs # Sodium 141 Potassium 3.5 Chloride 107 Carbon Dioxide 24 Anion Gap 13.5 BUN 12 Creatinine 0.7 GFR Calculation 84.5 L Glucose 90 Calculated Osmolal ity 291 Calcium 8.8 Phosphorus 3.2 Magnesium 2.2 Total Bilirubin 0.7 AST 20 ALT 12 Alkaline Phosphata se 54 NT-Pro-B Natriuret Pep 716 H Total Protein 6.6 Albumin 3.8 Globulin 2.8 Procalcitonin 0.04 TSH 1.74 Urine Color Yellow Urine Appearance Cloudy Urine pH 5 Ur Specific Gravit y 1.020 Urine Protein Neg Urine Glucose (UA) Norm Urine Ketones 1+ H Urine Blood 2+ H Urine Nitrate Positive H Urine Bilirubin Neg Urine Urobilinogen Norm Ur Leukocyte Kiana ase 2+ H Urine RBC 0-4 H Urine WBC Too numerous to c nt H Ur Squamous Epith Cells 0-4 H Amorphous Sediment Not Reportable Urine Bacteria 2+ H 10/15/20 03:50 WBC 7.4 RBC 3.95 L Hgb 11.5 Hct 36.2 L MCV 91.6 MCH 29.1 MCHC 31.8 RDW 13.4 Plt Count 234 MPV 11.0 H Neut % (Auto) 64.2 Lymph % (Auto) 26.5 Brewster % (Auto) 8.7 Eos % (Auto) 0.1 Baso % (Auto) 0.4 Neut # (Auto) 4.74 Lymph # (Auto) 2.0 Brewster # (Auto) 0.6 Eos # (Auto) 0.0 Baso # (Auto) 0.0 Nucleated RBC % (a uto) 0 Nucleated RBCs # 0.0 Sodium Potassium Chloride Carbon Dioxide Anion Gap BUN Creatinine GFR Calculation Glucose Calculated Osmolal ity Calcium Phosphorus Magnesium Total Bilirubin AST ALT Alkaline Phosphata se NT-Pro-B Natriuret Pep Total Protein Albumin Globulin Procalcitonin TSH Urine Color Urine Appearance Urine pH Ur Specific Gravit y Urine Protein Urine Glucose (UA) Urine Ketones Urine Blood Urine Nitrate Urine Bilirubin Urine Urobilinogen Ur Leukocyte Kiana ase Urine RBC Urine WBC Ur Squamous Epith Cells Amorphous Sediment Urine Bacteria Vitals: Last Vital Signs Temp 98.1 F 10/15/20 11:34 Pulse 53 L 10/15/20 11:34 Resp 19 H 10/15/20 11:34 BP 107/64 10/15/20 11:34 Pulse Ox 97 10/15/20 11:34 Discharge Plan Discharge Patient Disposition: Home Condition: Stable Prescriptions: New levetiracetam [Keppra] 500 mg tablet 500 mg PO BID 14 Days Qty: 28 RF: 0 Continued metoprolol tartrate 25 mg Tablet 25 mg PO DAILY RF: 0 ginseng 100 mg Capsule 100 mg PO DAILY RF: 0 tolterodine 4 mg Capsule,Extended Release 24hr 4 mg PO DAILY RF: 0 Copaxone 20 mg/mL Syringe Kit 20 mg SUBCUT DAILY RF: 0 aspirin 81 mg Tablet 81 mg PO DAILY RF: 0 Discharge Orders: Discharge Order (Routine); Ordered 10/15/20 Ordered By: Bradley Clay Discharge Diet: Usual diet Discharge Activity: Increase activity as tolerated Discharge Attestations Time Spent in Discharge Care*: greater than 30 min Specific Discharge Activities: educating patient, educating and/or supporting family/caregiver, discussing with pcp/other providers, discussing with casey saw operator/social workers/dc planners, documenting/other paperwork and evaluating patient/reviewing data Status at Discharge: Cognitive status at discharge: cognitively intact, Behavioral status at discharge: cooperative, Functional status at discharge: independent ambulation Overall status at discharge: patient is back to baseline Quality Metrics Clinical Quality Measures During this hospital stay, did patient experience: None Coding Level of Care Code Acute Yard [employer] Car Supervisor for Oliva Fwd Diagnoses Seizure R56.9 Multiple sclerosis G35 HTN (hypertension) I10
[2020-10-15 18:07] VITALS: BP 107/64; PULSE 53; RESP 19; TEMP 36.7; O2SAT 97
--- NOTE | 2020-10-15 18:57 | PC.NURSE ---
Addendum entered by Oriana Brooks RN 10/15/20 19:07: Pt also denied any acute vision changes in both eyes. Original Note: Discharge instructions given; paperwork signed. All questions answered. Pt's left eye was cleansed with sterile gauze and sterile saline; some scleral redness noted but pupil assessment is WNL (PERRLA). New prescription for Keppra was transmitted to the [facility] in [place], where pt stated she will pick it up. Pt verbalizes agreement to schedule follow-up visits with her PCP and her neurologist, preferably within 1 week. VSS; no s/s distress. Pt denies any needs or concerns at this time. IV and media relations coordinator removed. All personal belongings sent with pt. Pt escorted via wheelchair to hospital entrance, and assisted into private vehicle, where her daughter was waiting.
== END 2020-10-15 06:50 | disposition home or self-care (01) ==
LOC: ER 13:08 → MEDSURG 15:37
PROVIDERS: Admitting Provider Internal Medicine; Emergency Provider Physician Assistant; Visit Provider Internal Medicine
DX: R56.9 Unspecified convulsions (principal); G35 Multiple sclerosis; I10 Essential (primary) hypertension; S01.81XA Laceration without foreign body of other part of head, initial encounter; W19.XXXA Unspecified fall, initial encounter
CPT/HCPCS: 12011; 12345; 36415; 70450; 70486; 71045; 73020; 80053; 81001; 82550; 83605; 83735; 83880; 84100; 84145; 84443; 85025; 85610; 85730; 87077; 87086; 87186; 93005; 96365; 96366; 96372; 96374; 96375; 99282; 99285; G0378; J1650; J1953; J2060